=== PATIENT | female | born 1990 | race Caucasian/White ===

== ENCOUNTER 2016-08-11 20:09 | Emergency (ER) | payer OTHER ==
[2016-08-11 20:15] VITALS: BP 116/73; PULSE 82; TEMP 98.2; BMI 23.6
--- NOTE | 2016-08-11 21:32 | PDOC ---
History of Present Illness - General Chief Complaint: Pain, Acute Stated Complaint: STOMACH PAIN Time Seen by Provider: 08/11/16 20:31 History Source: Patient Exam Limitations: No Limitations - History of Present Illness Initial Comments: 08/11/16 22:02 Chief complaint: Raised area or pubic hair line and vaginal discharge History of present illness: Patient is a 25-year-old female with no significant medical history here today complaining of a small reddened area and pubic area where she had shaved hair over the last 5 days that is getting slightly bigger and is slightly tender. Patient reports that her boyfriend had a similar area on his leg. Patient reports that he had a yeast infection. Patient also reports having a vaginal discharge that is white in color and sometimes at the cheese like consistency 2 months. Patient reports having dyspareunia 2 months. He denies any urinary symptoms. Patient denies any fever. Patient denies any pelvic pain. She is a 2 para 2. 08/12/16 23:34 Timing/Duration: getting worse Severity: mild Associated Symptoms: reports: other (vaginal discharge, raised red tender lump left pubic) Past History - Past Medical History Allergies/Adverse Reactions: Allergies Allergy/AdvReac Type Severity Reaction Status Date / Time No Known Allergies Allergy Verified 08/11/16 20:12 Home Medications: Ambulatory Orders Fluconazole [Diflucan -] 150 mg PO ONCE #1 tablet 08/11/16 Sulfamethoxazole/Trimethoprim [Bactrim DS -] 1 tab PO BID #14 tablet 08/11/16 Other medical history: denies - Psycho/Social/Smoking Cessation Hx Suicidal Ideation: No Smoking Status: No Smoking History: Never smoked Number of Cigarettes Smoked Daily: 0 Review of Systems - Review of Systems Able to Perform ROS?: Yes Constitutional: No: Symptoms Reported HEENTM: No: Symptoms Reported Respiratory: No: Symptoms reported Cardiac (ROS): No: Symptoms Reported ABD/GI: No: Symptoms Reported : Yes: Discharge (white milky to cheese like consistency for 2 mths, pain with sexual intercourse). No: Burning, Dysuria Integumentary: Yes: Erythema (slight tender dime size area in left pubic area where hair had been shaved X 5 days) Neurological: No: Symptoms reported *Physical Exam - Vital Signs Last Vital Signs Temp Pulse Resp BP Pulse Ox 98.2 F 82 18 116/73 98 08/11/16 20:12 08/11/16 20:12 08/11/16 20:12 08/11/16 20:12 08/11/16 20:12 - Physical Exam General Appearance: Yes: Appropriately Dressed Respiratory/Chest: positive: Lungs Clear, Normal Breath Sounds. negative: Chest Tender, Respiratory Distress Cardiovascular: positive: Regular Rhythm, Regular Rate, S1, S2 Female Pelvic Exam: positive: normal external exam, cervical os closed, normal adnexa, normal size ovaries, discharge (white milky few white clumps ). negative: CMT, lesions, Bartholin mass, Scalene Gland, adnexal tenderness, vaginal bleeding Gastrointestinal/Abdominal: positive: Normal Bowel Sounds, Soft. negative: Tender, Organomegaly, Increased Bowel Sounds, Decreased BS, Distended, Guarding , Rebound, Tenderness, Hepatomegaly, Spleenomegaly Integumentary: positive: Erythema (raised non fluent area left pubic area mobile dime size, slightly tender) Neurologic: positive: Alert, Normal Response, Responsive ED Treatment Course - ADDITIONAL ORDERS Additional order review: Laboratory Results 08/11/16 20:57 Urine HCG, Qual Negative Medical Decision Making - Medical Decision Making 08/11/16 22:04 Patient is a 25-year-old female with no significant medical history here today complaining of a small reddened area and pubic area where she had shaved hair over the last 5 days that is getting slightly bigger and is slightly tender. Patient reports that her boyfriend had a similar area on his leg. Patient reports that he had a yeast infection. Patient also reports having a vaginal discharge that is white in color and sometimes at the cheese like consistency 2 months. Patient reports having dyspareunia 2 months. He denies any urinary symptoms. Patient denies any fever. Patient denies any pelvic pain. She is a 2 para 2. R/O STD unprotected sex Vaginal discharge 2 months with dyspareunia small raised abscess non fluculant on left pubis where hair has been shaved PLAN; genital culture urine hcg negative chlamydia/GC amplificiation rocephin 250 mg IM now azithromycin 1 mg now will treat with bactrim DS 1 tab bid for 7 days Apply warm soaks to raised area on pubic area every few hours while awake for next few days return to emergency room as area is bigger, redder and more tender diflucan 150 mg po X 1 08/12/16 23:38 *DC/Admit/Observation/Transfer Diagnosis at time of Disposition: History of unprotected sex, Concern about STD in female without diagnosis, Abscess of pubic region - Discharge Dispostion Disposition: HOME Condition at time of disposition: Stable - Prescriptions Prescriptions: Sulfamethoxazole/Trimethoprim [Bactrim DS -] 1 tab PO BID #14 tablet Fluconazole [Diflucan -] 150 mg PO ONCE #1 tablet - Patient Instructions Additional Instructions: follow-up with your loan servicing officer as soon as possible for further evaluation Return to emergency room if symptoms worsen or area in pubic area Bigger bigger and redder or any fever Apply warm soaks to raised area in pubic area every 3 hours for 10 minutes awake for the next few days Do not have any sexual relations for the next 10 days then Use protection when having sexual relations use condoms You may call here in 3 days for further results of your tests that were pending at discharge Patient voiced understanding of discharge instructions and all questions were answered
[2016-08-11] MEDS ORDERED: AZITHROMYCIN 1 GM PACKET PO ONE (21:46)
[2016-08-11] MEDS ORDERED: AZITHROMYCIN 1 GM PACKET ONE (21:57)
== END 2016-08-11 22:13 | disposition home or self-care (01) ==
LOC: JERFT 20:09
DX: L02.214 Cutaneous abscess of groin (principal); N94.10 Unspecified dyspareunia; N89.8 Other specified noninflammatory disorders of vagina
CPT/HCPCS: 36415; 84703; 86593; 87070; 87205; 87491; 87591; 99281-25